=== PATIENT | male | born 1960 | race Caucasian/White ===

== ENCOUNTER → 2017-06-12 | Outpatient (CLI) | payer OTHER ==
[2017-06-12 14:32] LABS: ALBUMIN 3.7 gm/dl (3.4-5.0); ALT/SGPT 84 U/L (12-78); AST/SGOT 28 U/L (15-37); BLOOD UREA NITROGEN 20 mg/dl (7-18); CALCIUM 9.2 mg/dl (8.5-10.1); CARBON DIOXIDE 28 mmol/L (21-32); CREATININE 1.09 mg/dl (0.60-1.40); GLUCOSE 96 mg/dl (70-99); POTASSIUM 3.1 mmol/L (3.5-5.1); SODIUM 142 mmol/L (136-145)
[2017-06-12 14:36] LABS: ALKALINE PHOSPHATASE 103 U/L (45-117); CHOLESTEROL 159 mg/dl (0-200); LDL CHOLESTEROL CALCULATED 73 mg/dl; TOTAL PROTEIN 7.8 gm/dl (6.4-8.2)
== END | disposition home or self-care (01) ==
LOC: C.LABPVFM 08:32
PROVIDERS: ATTEND Family Medicine
DX: I10 Essential (primary) hypertension (principal); E78.5 Hyperlipidemia, unspecified; L71.9 Rosacea, unspecified; R39.198 Other difficulties with micturition

== ENCOUNTER → 2017-10-17 | Outpatient (CLI) | payer OTHER ==
[2017-10-17 12:58] LABS: BLOOD UREA NITROGEN 17 mg/dl (7-18); CREATININE 1.08 mg/dl (0.60-1.40); GLUCOSE 93 mg/dl (70-99)
[2017-10-17 12:59] LABS: ALBUMIN 3.7 gm/dl (3.4-5.0); ALT/SGPT 45 U/L (12-78); AST/SGOT 16 U/L (15-37); CALCIUM 8.6 mg/dl (8.5-10.1); CARBON DIOXIDE 29 mmol/L (21-32); POTASSIUM 3.4 mmol/L (3.5-5.1); SODIUM 141 mmol/L (136-145)
[2017-10-17 13:01] LABS: ALKALINE PHOSPHATASE 105 U/L (45-117); TOTAL PROTEIN 7.7 gm/dl (6.4-8.2)
== END | disposition home or self-care (01) ==
LOC: C.LABPVFM 07:42
PROVIDERS: ATTEND Family Medicine
DX: I10 Essential (primary) hypertension (principal); E78.5 Hyperlipidemia, unspecified; R74.0 Nonspecific elevation of levels of transaminase and lactic acid dehydrogenase [LDH]; L71.9 Rosacea, unspecified; E87.6 Hypokalemia